=== PATIENT | male | born 1955 | race Two or more races ===

== ENCOUNTER 2017-11-10 18:44 | Inpatient (IN) | payer MEDICARE ==
[~2017-11-10] VITALS: Ht 172.7 cm; Wt 81.6 kg
[~2017-11-10 18:44] MED LIST: Depakote 125mg Sprinkles ORAL SCH
[2017-11-10] MEDS ORDERED: PANTOPRAZOLE SO40 MG ORAL (18:58)
[2017-11-10] MEDS ORDERED: LEVOTHYROXINE75 MCG ORAL (18:58)
[2017-11-10] MEDS ORDERED: DEPAKOTE250 MG PO (18:58)
[2017-11-10] MEDS ORDERED: RISPERDAL1 MG PO (18:58)
[2017-11-10] MEDS ORDERED: CATAPRES0.1 MG ORAL (18:58)
[2017-11-10] MEDS ORDERED: LOSARTAN POTASS25 MG ORAL (18:58)
[2017-11-10] MEDS ORDERED: LAMICTAL25 MG ORAL ×2 (18:58→19:51)
[2017-11-10] MEDS ORDERED: SEROQUEL200 MG ORAL (18:58)
[2017-11-10] MEDS ORDERED: BUPROPION HCL75 MG PO (18:58)
--- NOTE | 2017-11-10 19:03 | Emergency Room Report ---
History of Present Illness General Chief Complaint: Seizure Source: EMS Present Illness HPI Patient is currently staying at a senior care. Patient has a history of hypertension and psychosis generalized weakness anxiety disorder intellectual disability questionable dementia who recently developed seizures. Today apparently had a seizure and a fall followed by confusion. Patient currently is only alert oriented to self when he typically is alert and oriented 3. Patient is currently being cared for by Dr. Maharaj's group. Patient apparently had a seizure today and then fall no evidence of any trauma but appears confused. No further history is available as time patient denies any fever chest pain shortness breath symptoms noted to be severe.No other modifying factors. No other associated signs and symptoms. No other complaints were noted. Allergies: Coded Allergies: No Known Allergies (Unverified , 11/10/17) Patient History Past Medical History: HTN Past Surgical History: none Pertinent Family History: none Social History: Denies: smoking, alcohol use, drug use Social History Narrative stays at a senior care Reviewed Nursing Documentation: PMH: Agreed; PSxH: Agreed Nursing Documentation-PMH Past Medical History: No History, Except For Hx Hypertension: Yes Review of Systems All Other Systems: negative except mentioned in HPI Physical Exam Vital Signs Date Time Temp Pulse Resp B/P (MAP) Pulse Ox O2 Delivery O2 Flow Rate FiO2 11/10/17 18:34 98.0 82 18 136/90 98 Nasal Cannula 2.0 98.1 Sp02 EP Interpretation: reviewed, normal General Appearance: alert, moderate distress Head: atraumatic Eyes: bilateral eye normal inspection ENT: normal ENT inspection, hearing grossly normal, normal voice Neck: normal inspection, full range of motion, supple, no bony tend Respiratory: normal inspection, lungs clear, normal breath sounds, no respiratory distress, no retraction, no wheezing Cardiovascular #1: regular rate, rhythm, no edema Gastrointestinal: normal inspection, normal bowel sounds, non tender, soft, no guarding, no hernia Genitourinary: no CVA tenderness Musculoskeletal: normal inspection, back normal, normal range of motion Neurologic: normal inspection, alert, responsive - Appears confused. Alert and oriented to self, speech normal Psychiatric: depressed affect, anxious Skin: normal inspection, normal color, no rash Medical Decision Making Diagnostic Impression: Primary Impression: Epileptic seizure, generalized Additional Impressions: Altered mental status, unspecified Rhabdomyolysis ER Course Patient presents emergency department today complaining of a seizure. Patient appears be altered after seizure. Differential considerations include subtherapeutic medication level, electrolyte abnormality acute cranial injury just to name a few.Given the severity of the patient's presentation I felt this is a highly complex patient. This patient required extensive workup. Patient' s laboratory workup was not impressive except for Depakote level being low. Patient was given a Depacon load. In addition patient appears have elevated CK which be secondary seizures. Patient was given fluid bolus. Because patient's presentation persistent altered mental status patient require admission to the hospital. Case was discussed with Dr. Jett for admission. Labs Test 11/10/17 18:59 White Blood Count 8.6 K/UL (4.8-10.8) Red Blood Count 4.34 M/UL (4.70-6.10) Hemoglobin 13.1 G/DL (14.2-18.0) Hematocrit 38.1 % (42.0-52.0) Mean Corpuscular Volume 88 FL (80-99) Mean Corpuscular Hemoglobin 30.1 PG (27.0-31.0) Mean Corpuscular Hemoglobin Concent 34.3 G/DL (32.0-36.0) Red Cell Distribution Width 11.6 % (11.6-14.8) Platelet Count 248 K/UL (150-450) Mean Platelet Volume 5.5 FL (6.5-10.1) Neutrophils (%) (Auto) 69.1 % (45.0-75.0) Lymphocytes (%) (Auto) 21.6 % (20.0-45.0) Monocytes (%) (Auto) 7.0 % (1.0-10.0) Eosinophils (%) (Auto) 1.3 % (0.0-3.0) Basophils (%) (Auto) 1.0 % (0.0-2.0) Sodium Level 134 MMOL/L (136-145) Potassium Level 3.8 MMOL/L (3.5-5.1) Chloride Level 101 MMOL/L (98-107) Carbon Dioxide Level 28 MMOL/L (21-32) Anion Gap 6 mmol/L (5-15) Blood Urea Nitrogen 7 mg/dL (7-18) Creatinine 0.8 MG/DL (0.55-1.30) Estimat Glomerular Filtration Rate > 60 mL/min (>60) Glucose Level 100 MG/DL (74-106) Calcium Level 9.1 MG/DL (8.5-10.1) Total Bilirubin 0.3 MG/DL (0.2-1.0) Aspartate Amino Transf (AST/SGOT) 61 U/L (15-37) Alanine Aminotransferase (ALT/SGPT) 34 U/L (12-78) Alkaline Phosphatase 60 U/L (46-116) Total Creatine Kinase 1803 U/L (26-308) Troponin I 0.010 ng/mL (0.000-0.056) Total Protein 7.2 G/DL (6.4-8.2) Albumin 3.3 G/DL (3.4-5.0) Globulin 3.9 g/dL Albumin/Globulin Ratio 0.8 (1.0-2.7) Valproic Acid (Depakene) Level 19 MCG/ML (50-100) EKG Diagnostic Results Rate: normal Rhythm: NSR ST Segments: no acute changes Rhythm Strip Diag. Results EP Interpretation: yes Rate: 76 Rhythm: NSR, no PVC's, no ectopy Chest X-Ray Diagnostic Results Chest X-Ray Diagnostic Results : Chest X-Ray Ordered: Yes # of Views/Limited/Complete: 1 View Indication: Chest Pain EP Interpretation: Yes Interpretation: no consolidation, no effusion, no pneumothorax, no acute cardiopulmonary disease Impression: No acute disease Electronically Signed by: Electronically signed by Fredy Zhou MD Last Vital Signs Date Time Temp Pulse Resp B/P (MAP) Pulse Ox O2 Delivery O2 Flow Rate FiO2 11/10/17 18:34 98.0 82 18 136/90 98 Nasal Cannula 2.0 98.1 Status: improved Disposition: ADMITTED INPATIENT Condition: Serious Fredy Zhou MD Nov 10, 2017 19:03
[2017-11-10 19:18] LABS: EOSINOPHILS % (AUTO) 1.3 % (0.0-3.0); HEMATOCRIT 38.1 % (42.0-52.0); HEMOGLOBIN 13.1 G/DL (14.2-18.0); LYMPHOCYTES % (AUTO) 21.6 % (20.0-45.0); MEAN CORPUSCULAR VOLUME 88 FL (80-99); NEUTROPHILS % (AUTO) 69.1 % (45.0-75.0); PLATELET COUNT 248 K/UL (150-450); RED BLOOD COUNT 4.34 M/UL (4.70-6.10); RED CELL DISTRIBUTION WIDTH 11.6 % (11.6-14.8); WHITE BLOOD COUNT 8.6 K/UL (4.8-10.8)
[2017-11-10 19:24] VITALS: BP 143/86
[2017-11-10 19:32] LABS: ANION GAP 6 mmol/L (5-15); BLOOD UREA NITROGEN 7 mg/dL (7-18); CALCIUM 9.1 MG/DL (8.5-10.1); CARBON DIOXIDE 28 MMOL/L (21-32); CHLORIDE 101 MMOL/L (98-107); CREATININE 0.8 MG/DL (0.55-1.30); POTASSIUM 3.8 MMOL/L (3.5-5.1); SODIUM 134 MMOL/L (136-145)
[2017-11-10 19:45] LABS: ALANINE AMINOTRANSFERASE 34 U/L (12-78); ALBUMIN 3.3 G/DL (3.4-5.0); ALBUMIN/GLOBULIN RATIO 0.8 (1.0-2.7); ALKALINE PHOSPHATASE 60 U/L (46-116); ASPARTATE AMINO TRANSFERASE 61 U/L (15-37); BILIRUBIN,TOTAL 0.3 MG/DL (0.2-1.0); CREATINE KINASE 1803 U/L (26-308)
[2017-11-10] MEDS ORDERED: DIVALPROEX SOD125 M1 PO (19:51)
[2017-11-10] MEDS ORDERED: SYNTHROID25 MCG ORAL (19:57)
[2017-11-10] MEDS ORDERED: UNITHROID50 MCG ORAL (19:57)
[2017-11-10] MEDS ORDERED: Valproate Sodium INJ 750 MG in D5W 47.5 ML IVPB ONE (20:00)
[2017-11-10] MEDS ORDERED: Sodium Chloride 500ML 500 ML IV ONE (20:45)
[2017-11-10 21:30] VITALS: BP 136/90
[2017-11-10 22:29] LABS: APPEARANCE,URINE CLEAR; BILIRUBIN, URINE NEGATIVE (NEGATIVE); COLOR,URINE PALE YELLOW; GLUCOSE, URINE (UA) NEGATIVE (NEGATIVE); KETONES,URINE NEGATIVE (NEGATIVE); LEUKOCYTE ESTERASE ,URINE NEGATIVE (NEGATIVE); NITRITE,URINE NEGATIVE (NEGATIVE); PH,URINE 7 (4.5-8.0); PROTEIN,URINE NEGATIVE (NEGATIVE); UROBILINOGEN,URINE NORMAL MG/DL (0.0-1.0)
[2017-11-10] MEDS ORDERED: LORazepam Inj 2mg/ml 1ml IV PRN (23:15)
[2017-11-10] MEDS ORDERED: Depakote 125mg Sprinkles ORAL SCH (23:45)
[2017-11-10] MEDS ORDERED: Sodium Chloride 500ML 1,000 ML IV SCH (23:50)
[2017-11-11 07:29] LABS: BASOPHILS % (AUTO) 0.8 % (0.0-2.0); EOSINOPHILS % (AUTO) 2.4 % (0.0-3.0); HEMATOCRIT 35.4 % (42.0-52.0); HEMOGLOBIN 12.1 G/DL (14.2-18.0); LYMPHOCYTES % (AUTO) 27.4 % (20.0-45.0); MEAN CORPUSCULAR VOLUME 86 FL (80-99); MONOCYTES % (AUTO) 5.2 % (1.0-10.0); NEUTROPHILS % (AUTO) 64.3 % (45.0-75.0); PLATELET COUNT 219 K/UL (150-450); RED BLOOD COUNT 4.14 M/UL (4.70-6.10); RED CELL DISTRIBUTION WIDTH 11.4 % (11.6-14.8); WHITE BLOOD COUNT 6.8 K/UL (4.8-10.8)
[2017-11-11 07:51] LABS: ANION GAP 7 mmol/L (5-15); BLOOD UREA NITROGEN 6 mg/dL (7-18); CALCIUM 8.7 MG/DL (8.5-10.1); CARBON DIOXIDE 29 MMOL/L (21-32); CHLORIDE 102 MMOL/L (98-107); CREATINE KINASE 1195 U/L (26-308); CREATININE 0.7 MG/DL (0.55-1.30); POTASSIUM 3.4 MMOL/L (3.5-5.1); SODIUM 138 MMOL/L (136-145)
[2017-11-11 08:00] VITALS: BP 119/63
[2017-11-11] MEDS: Depakote 125mg Sprinkles ORAL SCH ×2 (08:25→21:59)
[2017-11-11] MEDS: QUEtiapine 200mg tab ORAL SCH (08:25)
--- NOTE | 2017-11-11 09:54 | Diagnostic Imaging Report ---
Indication: Altered mental status Technique: Contiguous 5 mm thick transaxial imaging of the head obtained in a Siemens Sensation [address] scanner. Soft tissue and bone windows generated. Automatic Exposure Control was utilized. Total Dose length Product (DLP): 1445.[address] Dose Index Volume (CTDIvol): 70.38 mGy Comparison: none Findings: There is moderate prominence of the ventricles, basal cisterns, and cerebral sulci consistent with atrophy. Moderate, nonspecific, white matter hypoattenuation is noted throughout the brain consistent with chronic small vessel disease. There is no midline shift, edema, acute hemorrhage, mass effect, or abnormal extra-axial fluid collections. Bones and extra osseous soft tissues are unremarkable. Impression: No acute intracranial bleed, mass effect or edema. Moderate atrophy of the brain. Evidence of chronic small vessel disease involving white matter tracts. [facility] has communicated the preliminary results to the Emergency Department. Their findings are largely concordant with this report. The CT scanner at [facility] is accredited by the [employer] and the scans are performed using dose optimization techniques as appropriate to a performed exam including Automatic Exposure control.
--- NOTE | 2017-11-11 10:57 | Diagnostic Imaging Report ---
Indication: Chest pain Comparison: None A single view chest radiograph was obtained. Findings: Mild pulmonary vascular prominence demonstrated with heart size also increased slightly. Aorta is mildly increased in size. No pleural effusion identified. IMPRESSION: Query mild CHF. Correlate clinically
--- NOTE | 2017-11-11 11:30 | History and Physical ---
History of Present Illness General Date patient seen: Nov 11, 2017 Time patient seen: 10:00 Reason for Hospitalization: Seizure Present Illness HPI 62 year old man with history of epilepsy, unspecified psychosis, dementia, HTN who presents from the detention with seizure and subsequent fall. He is a poor historian due cognitive impairment, information obtain from medical record and detention transfer papers. In ED he was noted to be confused with subtherapeutic Depakote level and elevated CK levels, treated with IV valproic acid and IV saline. Allergies: Coded Allergies: No Known Allergies (Unverified , 11/10/17) Medication History Scheduled Bupropion Hcl* (Bupropion Hcl*), 150 MG PO DAILY, (Reported) Clonidine Hcl* (Catapres*), 0.1 MG ORAL EVERY 6 HOURS, (Reported) Divalproex Sodium (Divalproex Sodium), 125 MG PO BID, (Reported) Lamotrigine* (Lamictal*), 50 MG ORAL BID, (Reported) Levothyroxine Sodium* (Unithroid*), 50 MCG ORAL DAILY, (Reported) Losartan Potassium* (Losartan Potassium*), 25 MG ORAL DAILY, (Reported) Pantoprazole* (Pantoprazole*), 40 MG ORAL DAILY, (Reported) Quetiapine Fumarate* (Seroquel*), 200 MG ORAL DAILY, (Reported) Risperidone* (Risperdal*), 1 MG PO DAILY, (Reported) Patient History Limited by: medical condition Healthcare decision maker Resuscitation status Advanced Directive on File Family History Family History: Unable to obtain Social History Social History: (1) Unable to obtain Review of Systems Cardiovascular: Denies: chest pain Gastrointestinal: Denies: abdominal pain ROS Narrative Very limited ROS due to dementia and encephalopathy Physical Exam General Appearance: alert, confused HEENT: atraumatic, anicteric Neck: supple, normal inspection Respiratory/Chest: lungs clear, normal breath sounds, no respiratory distress Cardiovascular/Chest: normal rate, regular rhythm Abdomen: non tender, soft Neurologic: alert Last 24 Hour Vital Signs Date Time Temp Pulse Resp B/P (MAP) Pulse Ox O2 Delivery O2 Flow Rate FiO2 11/11/17 08:00 97.5 75 18 119/63 (81) 98 97.5 11/11/17 08:00 81 11/11/17 05:21 67 11/11/17 01:17 Room Air 11/10/17 23:19 97.8 72 13 136/90 98 Room Air 11/10/17 21:30 97.8 72 18 136/90 98 Room Air 97.8 11/10/17 19:24 98.0 72 16 143/86 98 Room Air 98.0 11/10/17 19:24 72 16 Room Air 11/10/17 18:34 98.0 82 18 136/90 98 Nasal Cannula 2.0 98.1 Intake and Output 11/10/17 11/11/17 19:00 07:00 Intake Total 1105 ml Output Total 520 ml Balance 585 ml Intake IV Total 1105 ml Output Urine Total 520 ml Laboratory Tests Test 11/10/17 18:59 11/10/17 22:00 11/11/17 05:30 White Blood Count 8.6 K/UL (4.8-10.8) 6.8 K/UL (4.8-10.8) Red Blood Count 4.34 M/UL (4.70-6.10) L 4.14 M/UL (4.70-6.10) L Hemoglobin 13.1 G/DL (14.2-18.0) L 12.1 G/DL (14.2-18.0) L Hematocrit 38.1 % (42.0-52.0) L 35.4 % (42.0-52.0) L Mean Corpuscular Volume 88 FL (80-99) 86 FL (80-99) Mean Corpuscular Hemoglobin 30.1 PG (27.0-31.0) 29.3 PG (27.0-31.0) Mean Corpuscular Hemoglobin Concent 34.3 G/DL (32.0-36.0) 34.2 G/DL (32.0-36.0) Red Cell Distribution Width 11.6 % (11.6-14.8) 11.4 % (11.6-14.8) L Platelet Count 248 K/UL (150-450) 219 K/UL (150-450) Mean Platelet Volume 5.5 FL (6.5-10.1) L 4.9 FL (6.5-10.1) L Neutrophils (%) (Auto) 69.1 % (45.0-75.0) 64.3 % (45.0-75.0) Lymphocytes (%) (Auto) 21.6 % (20.0-45.0) 27.4 % (20.0-45.0) Monocytes (%) (Auto) 7.0 % (1.0-10.0) 5.2 % (1.0-10.0) Eosinophils (%) (Auto) 1.3 % (0.0-3.0) 2.4 % (0.0-3.0) Basophils (%) (Auto) 1.0 % (0.0-2.0) 0.8 % (0.0-2.0) Sodium Level 134 MMOL/L (136-145) L 138 MMOL/L (136-145) Potassium Level 3.8 MMOL/L (3.5-5.1) 3.4 MMOL/L (3.5-5.1) L Chloride Level 101 MMOL/L (98-107) 102 MMOL/L (98-107) Carbon Dioxide Level 28 MMOL/L (21-32) 29 MMOL/L (21-32) Anion Gap 6 mmol/L (5-15) 7 mmol/L (5-15) Blood Urea Nitrogen 7 mg/dL (7-18) 6 mg/dL (7-18) L Creatinine 0.8 MG/DL (0.55-1.30) 0.7 MG/DL (0.55-1.30) Estimat Glomerular Filtration Rate > 60 mL/min (>60) > 60 mL/min (>60) Glucose Level 100 MG/DL (74-106) 89 MG/DL (74-106) Calcium Level 9.1 MG/DL (8.5-10.1) 8.7 MG/DL (8.5-10.1) Total Bilirubin 0.3 MG/DL (0.2-1.0) Aspartate Amino Transf (AST/SGOT) 61 U/L (15-37) H Alanine Aminotransferase (ALT/SGPT) 34 U/L (12-78) Alkaline Phosphatase 60 U/L (46-116) Total Creatine Kinase 1803 U/L (26-308) H 1195 U/L (26-308) H Troponin I 0.010 ng/mL (0.000-0.056) Total Protein 7.2 G/DL (6.4-8.2) Albumin 3.3 G/DL (3.4-5.0) L Globulin 3.9 g/dL Albumin/Globulin Ratio 0.8 (1.0-2.7) L Valproic Acid (Depakene) Level 19 MCG/ML (50-100) L 51 MCG/ML (50-100) Urine Color Pale yellow Urine Appearance Clear Urine pH 7 (4.5-8.0) Urine Specific [place] 1.005 (1.005-1.035) Urine Protein Negative (NEGATIVE) Urine Glucose (UA) Negative (NEGATIVE) Urine Ketones Negative (NEGATIVE) Urine Blood Negative (NEGATIVE) Urine Nitrite Negative (NEGATIVE) Urine Bilirubin Negative (NEGATIVE) Urine Urobilinogen Normal MG/DL (0.0-1.0) Urine Leukocyte Esterase Negative (NEGATIVE) Height (Feet): 5 Height (Inches): 8.00 Weight (Pounds): 180 Medications Current Medications Medications (Trade) Dose Ordered Sig/Susanne Route PRN Reason Start Time Stop Time Status Last Admin Dose Admin Clonidine HCl (Catapres Tab) 0.1 mg EVERY 6 HOURS ORAL 11/11/17 12:00 12/11/17 11:59 UNV Divalproex Sodium (Depakote Sprinkles) 125 mg Q12H ORAL 11/11/17 09:00 12/11/17 08:59 11/11/17 08:25 Hydralazine HCl (Apresoline) 10 mg Q6HR PRN IV For High Blood Pressure 11/10/17 23:15 12/10/17 23:14 Lamotrigine (LaMICtal) 50 mg BID ORAL 11/11/17 11:30 12/11/17 11:29 UNV Levothyroxine Sodium (Synthroid) 50 mcg ACBREAKFAST ORAL 11/11/17 06:30 12/11/17 06:29 11/11/17 05:48 Lorazepam (Ativan 2mg/ml 1ml) 2 mg Q4H PRN IV For Seizures 11/10/17 23:15 11/17/17 23:14 Losartan Potassium (Cozaar) 25 mg DAILY ORAL 11/12/17 09:00 12/12/17 08:59 UNV Pantoprazole (Protonix) 40 mg DAILY ORAL 11/12/17 09:00 12/12/17 08:59 UNV Quetiapine Fumarate (SEROquel) 200 mg DAILY ORAL 11/11/17 09:00 12/11/17 08:59 11/11/17 08:25 Risperidone (RisperDAL) 1 mg TWICE A DAY ORAL 11/10/17 23:30 12/10/17 23:29 11/11/17 08:25 Sodium Chloride 1,000 ml @ 100 mls/hr Q10H IV 11/11/17 00:15 12/11/17 00:14 11/11/17 10:35 Assessment/Plan Assessment/Plan 1)Breakthrough seizure superimposed on documented epilepsy, noted to have subtherapeutic Depakote level, corrected with IV bolus. Will continue with Depaote and Lamictal. Neurology to be consulted. Seizure precautions. Fall precautions. 2)Rhabdomyolysis likely from seizure and fall, CK level down today, will continue with IV fluids, check CK again in AM. 3)Acute encephalopathy superimposed on dementia, likely post-ictal state, continue supportive measures and frequent orienting. Fall, aspiration precautions. 4)Essential HTN, continue losartan and clonidine 5)Unspecified psychosis, continue current psychotropics, consult Dr. Carlson Full Code VTE PPx heparin sc Patient will require a hospitalization crossing 2 midnights in order to get close neurological monitoring, IV fluids and monitoring of renal function CK levels. He is at risk for recurrent seizures and traumatic injury. Ray Newsome MD Nov 11, 2017 11:30
[2017-11-11 12:00] VITALS: BP 140/81
[2017-11-11] MEDS ORDERED: Losartan 25mg tab ORAL SCH (12:00)
[2017-11-11 16:00] VITALS: BP 131/75
[2017-11-11 20:31] VITALS: BP 128/67
[2017-11-12] VITALS: BP 135/79
[2017-11-12 04:00] VITALS: BP 116/71
[2017-11-12 08:00] VITALS: BP 137/67
[2017-11-12 08:01] LABS: BASOPHILS % (AUTO) 0.9 % (0.0-2.0); EOSINOPHILS % (AUTO) 2.9 % (0.0-3.0); HEMOGLOBIN 12.9 G/DL (14.2-18.0); LYMPHOCYTES % (AUTO) 34.8 % (20.0-45.0); MEAN CORPUSCULAR VOLUME 87 FL (80-99); MONOCYTES % (AUTO) 4.8 % (1.0-10.0); NEUTROPHILS % (AUTO) 56.6 % (45.0-75.0); PLATELET COUNT 241 K/UL (150-450); RED BLOOD COUNT 4.39 M/UL (4.70-6.10); RED CELL DISTRIBUTION WIDTH 11.6 % (11.6-14.8); WHITE BLOOD COUNT 5.6 K/UL (4.8-10.8)
[2017-11-12 08:07] LABS: ANION GAP 3 mmol/L (5-15); BLOOD UREA NITROGEN 10 mg/dL (7-18); CALCIUM 8.9 MG/DL (8.5-10.1); CARBON DIOXIDE 31 MMOL/L (21-32); CHLORIDE 104 MMOL/L (98-107); CREATININE 0.8 MG/DL (0.55-1.30); POTASSIUM 3.7 MMOL/L (3.5-5.1); SODIUM 138 MMOL/L (136-145)
[2017-11-12 08:15] LABS: CREATINE KINASE 504 U/L (26-308)
[2017-11-12] MEDS: QUEtiapine 200mg tab ORAL SCH (08:19)
[2017-11-12] MEDS: Losartan 25mg tab ORAL SCH (08:19)
[2017-11-12] MEDS: Depakote 125mg Sprinkles ORAL SCH ×2 (08:22→21:20)
[2017-11-12 12:00] VITALS: BP 116/76
--- NOTE | 2017-11-12 14:28 | Consultation ---
History of Present Illness General Date patient seen: Nov 11, 2017 Chief Complaint: Seizure Present Illness HPI 62 year old man with history of epilepsy, psychotic d/o, dementia, HTN who [facility] with [facility]/the pt has been more confused and not able to provide a meaningful hx. the pt is disorganized Allergies: Coded Allergies: No Known Allergies (Unverified , 11/10/17) Medication History Scheduled Bupropion Hcl* (Bupropion Hcl*), 150 MG PO DAILY, (Reported) Clonidine Hcl* (Catapres*), 0.1 MG ORAL EVERY 6 HOURS, (Reported) Divalproex Sodium (Divalproex Sodium), 125 MG PO BID, (Reported) Lamotrigine* (Lamictal*), 50 MG ORAL BID, (Reported) Levothyroxine Sodium* (Unithroid*), 50 MCG ORAL DAILY, (Reported) Losartan Potassium* (Losartan Potassium*), 25 MG ORAL DAILY, (Reported) Pantoprazole* (Pantoprazole*), 40 MG ORAL DAILY, (Reported) Quetiapine Fumarate* (Seroquel*), 200 MG ORAL DAILY, (Reported) Risperidone* (Risperdal*), 1 MG PO DAILY, (Reported) Patient History Limited by: medical condition History Provided By: Patient, Medical Record Healthcare decision maker Resuscitation status Advanced Directive on File Past Medical/Surgical History Past Medical/Surgical History: (1) Rhabdomyolysis (2) Epileptic seizure, generalized (3) Altered mental status, unspecified (4) Unable to obtain Review of Systems Psychiatric: Reports: prior hx, anxiety, hallucinations Physical Exam General Appearance: no apparent distress, alert, confused, agitated Last 24 Hour Vital Signs Date Time Temp Pulse Resp B/P (MAP) Pulse Ox O2 Delivery O2 Flow Rate FiO2 11/12/17 12:00 97.5 81 18 116/76 (89) 94 97.5 11/12/17 12:00 79 11/12/17 09:00 Room Air 11/12/17 08:19 126/72 11/12/17 08:00 78 11/12/17 08:00 98.1 81 18 137/67 (90) 94 98.1 11/12/17 04:00 97.2 69 18 116/71 (86) 94 97.2 11/12/17 04:00 69 11/12/17 00:00 98.1 85 20 135/79 (97) 94 98.1 11/12/17 00:00 73 11/11/17 21:00 Room Air 11/11/17 20:31 97.7 62 20 128/67 (87) 96 97.7 11/11/17 20:00 86 11/11/17 16:00 70 11/11/17 16:00 97.9 73 18 131/75 (93) 98 97.9 Intake and Output 11/11/17 11/12/17 19:00 07:00 Intake Total 860 ml Output Total 300 ml Balance 560 ml Intake Oral 860 ml Output Urine Total 300 ml # Voids 3 Laboratory Tests Test 11/12/17 06:10 White Blood Count 5.6 K/UL (4.8-10.8) Red Blood Count 4.39 M/UL (4.70-6.10) L Hemoglobin 12.9 G/DL (14.2-18.0) L Hematocrit 38.0 % (42.0-52.0) L Mean Corpuscular Volume 87 FL (80-99) Mean Corpuscular Hemoglobin 29.4 PG (27.0-31.0) Mean Corpuscular Hemoglobin Concent 33.9 G/DL (32.0-36.0) Red Cell Distribution Width 11.6 % (11.6-14.8) Platelet Count 241 K/UL (150-450) Mean Platelet Volume 5.0 FL (6.5-10.1) L Neutrophils (%) (Auto) 56.6 % (45.0-75.0) Lymphocytes (%) (Auto) 34.8 % (20.0-45.0) Monocytes (%) (Auto) 4.8 % (1.0-10.0) Eosinophils (%) (Auto) 2.9 % (0.0-3.0) Basophils (%) (Auto) 0.9 % (0.0-2.0) Sodium Level 138 MMOL/L (136-145) Potassium Level 3.7 MMOL/L (3.5-5.1) Chloride Level 104 MMOL/L (98-107) Carbon Dioxide Level 31 MMOL/L (21-32) Anion Gap 3 mmol/L (5-15) L Blood Urea Nitrogen 10 mg/dL (7-18) Creatinine 0.8 MG/DL (0.55-1.30) Estimat Glomerular Filtration Rate > 60 mL/min (>60) Glucose Level 86 MG/DL (74-106) Calcium Level 8.9 MG/DL (8.5-10.1) Magnesium Level 1.7 MG/DL (1.8-2.4) L Total Creatine Kinase 504 U/L (26-308) H Height (Feet): 5 Height (Inches): 8.00 Weight (Pounds): 180 Medications Current Medications Medications (Trade) Dose Ordered Sig/Susanne Route PRN Reason Start Time Stop Time Status Last Admin Dose Admin Divalproex Sodium (Depakote Sprinkles) 125 mg Q12H ORAL 11/11/17 09:00 12/11/17 08:59 11/12/17 08:22 Hydralazine HCl (Apresoline) 10 mg Q6HR PRN IV For High Blood Pressure 11/10/17 23:15 12/10/17 23:14 Lamotrigine (LaMICtal) 50 mg BID ORAL 11/11/17 18:00 12/11/17 17:59 11/12/17 08:18 Levothyroxine Sodium (Synthroid) 50 mcg ACBREAKFAST ORAL 11/11/17 06:30 12/11/17 06:29 11/12/17 06:20 Lorazepam (Ativan 2mg/ml 1ml) 2 mg Q4H PRN IV For Seizures 11/10/17 23:15 11/17/17 23:14 Losartan Potassium (Cozaar) 25 mg DAILY ORAL 11/12/17 09:00 12/12/17 08:59 11/12/17 08:19 Pantoprazole (Protonix) 40 mg DAILY ORAL 11/12/17 09:00 12/12/17 08:59 11/12/17 08:18 Quetiapine Fumarate (SEROquel) 200 mg DAILY ORAL 11/11/17 09:00 12/11/17 08:59 11/12/17 08:19 Risperidone (RisperDAL) 1 mg TWICE A DAY ORAL 11/10/17 23:30 12/10/17 23:29 11/12/17 08:19 Sodium Chloride 1,000 ml @ 100 mls/hr Q10H IV 11/11/17 00:15 12/11/17 00:14 11/12/17 06:21 Assessment/Plan Assessment/Plan encephalopathy due to metabolic d.o psychotic d.o dementia cont seroquel cont risperdal provided ro/Abby Quiñones MD Nov 12, 2017 14:28
--- NOTE | 2017-11-12 15:31 | Cardiology Report ---
APPROVED REPORT EKG Measurement Heart [id number] Normal sinus rhythm Normal ECG
[2017-11-12 16:00] VITALS: BP 125/79
--- NOTE | 2017-11-12 18:23 | General Progress Note ---
Assessment/Plan Assessment/Plan Breakthrough seizure superimposed on documented epilepsy, noted to have subtherapeutic Depakote level, continue with Depaote and Lamictal. Seizure precautions. Fall precautions. May need inpatient MRI Rhabdomyolysis likely from seizure and fall, resolving with IV fluids. Acute encephalopathy superimposed on dementia, likely post-ictal state, better today, continue supportive measures. Essential HTN, continue losartan and clonidine Unspecified psychosis, continue current psychotropics, spoke with Dr. Carlson VTE PPx Subjective Date patient seen: Nov 12, 2017 Time patient seen: 17:00 ROS Limited/Unobtainable: Yes Cardiovascular: Denies: chest pain Respiratory: Denies: cough Gastrointestinal/Abdominal: Denies: abdominal pain Allergies: Coded Allergies: No Known Allergies (Unverified , 11/10/17) Subjective Medicine followup for seizure, subtherapeutic Depakote level, acute encephalopathy. No new seizure activity, very limited information from patient due to cognitive impairment. Objective Last 24 Hour Vital Signs Date Time Temp Pulse Resp B/P (MAP) Pulse Ox O2 Delivery O2 Flow Rate FiO2 11/12/17 16:00 87 11/12/17 16:00 98.1 84 18 125/79 (94) 92 98.1 11/12/17 12:00 97.5 81 18 116/76 (89) 94 97.5 11/12/17 12:00 79 11/12/17 09:00 Room Air 11/12/17 08:19 126/72 11/12/17 08:00 78 11/12/17 08:00 98.1 81 18 137/67 (90) 94 98.1 11/12/17 04:00 97.2 69 18 116/71 (86) 94 97.2 11/12/17 04:00 69 11/12/17 00:00 98.1 85 20 135/79 (97) 94 98.1 11/12/17 00:00 73 11/11/17 21:00 Room Air 11/11/17 20:31 97.7 62 20 128/67 (87) 96 97.7 11/11/17 20:00 86 Intake and Output 11/11/17 11/12/17 19:00 07:00 Intake Total 860 ml Output Total 300 ml Balance 560 ml Intake Oral 860 ml Output Urine Total 300 ml # Voids 3 Laboratory Tests 11/12/17 06:10: White Blood Count 5.6, Red Blood Count 4.39L, Hemoglobin 12.9L, Hematocrit 38.0L , Mean Corpuscular Volume 87, Mean Corpuscular Hemoglobin 29.4, Mean Corpuscular Hemoglobin Concent 33.9, Red Cell Distribution Width 11.6, Platelet Count 241, Mean Platelet Volume 5.0L, Neutrophils (%) (Auto) 56.6, Lymphocytes ( %) (Auto) 34.8, Monocytes (%) (Auto) 4.8, Eosinophils (%) (Auto) 2.9, Basophils (%) (Auto) 0.9, Sodium Level 138, Potassium Level 3.7, Chloride Level 104, Carbon Dioxide Level 31, Anion Gap 3L, Blood Urea Nitrogen 10, Creatinine 0.8, Estimat Glomerular Filtration Rate > 60, Glucose Level 86, Calcium Level 8.9, Magnesium Level 1.7L, Total Creatine Kinase 504H Height (Feet): 5 Height (Inches): 8.00 Weight (Pounds): 180 General Appearance: no apparent distress, alert Neck: supple Cardiovascular: normal rate, regular rhythm Respiratory/Chest: lungs clear, normal breath sounds, no respiratory distress Abdomen: non tender, soft Extremities: non-tender, normal inspection Ray Newsome MD Nov 12, 2017 18:23
[2017-11-12 20:00] VITALS: BP 135/85
--- NOTE | 2017-11-12 23:16 | General Progress Note ---
Assessment/Plan Status: stable Assessment/Plan encephalopathy due to metabolic d.o psychotic d.o dementia dc seroquel cont risperdal change to 2mg qhs dc when medically cleared provided ro/st Subjective Date patient seen: Nov 12, 2017 Neurologic/Psychiatric: Reports: anxiety, depressed, emotional problems Allergies: Coded Allergies: No Known Allergies (Unverified , 11/10/17) Subjective spoke with the pts facility and the pt is at his baseline. Objective Last 24 Hour Vital Signs Date Time Temp Pulse Resp B/P (MAP) Pulse Ox O2 Delivery O2 Flow Rate FiO2 11/12/17 21:00 Room Air 11/12/17 20:00 98.2 69 18 135/85 (102) 94 98.2 11/12/17 20:00 91 11/12/17 16:00 87 11/12/17 16:00 98.1 84 18 125/79 (94) 92 98.1 11/12/17 12:00 97.5 81 18 116/76 (89) 94 97.5 11/12/17 12:00 79 11/12/17 09:00 Room Air 11/12/17 08:19 126/72 11/12/17 08:00 78 11/12/17 08:00 98.1 81 18 137/67 (90) 94 98.1 11/12/17 04:00 97.2 69 18 116/71 (86) 94 97.2 11/12/17 04:00 69 11/12/17 00:00 98.1 85 20 135/79 (97) 94 98.1 11/12/17 00:00 73 Intake and Output 11/11/17 11/12/17 19:00 07:00 Intake Total 860 ml Output Total 300 ml Balance 560 ml Intake Oral 860 ml Output Urine Total 300 ml # Voids 3 Laboratory Tests 11/12/17 06:10: White Blood Count 5.6, Red Blood Count 4.39L, Hemoglobin 12.9L, Hematocrit 38.0L , Mean Corpuscular Volume 87, Mean Corpuscular Hemoglobin 29.4, Mean Corpuscular Hemoglobin Concent 33.9, Red Cell Distribution Width 11.6, Platelet Count 241, Mean Platelet Volume 5.0L, Neutrophils (%) (Auto) 56.6, Lymphocytes ( %) (Auto) 34.8, Monocytes (%) (Auto) 4.8, Eosinophils (%) (Auto) 2.9, Basophils (%) (Auto) 0.9, Sodium Level 138, Potassium Level 3.7, Chloride Level 104, Carbon Dioxide Level 31, Anion Gap 3L, Blood Urea Nitrogen 10, Creatinine 0.8, Estimat Glomerular Filtration Rate > 60, Glucose Level 86, Calcium Level 8.9, Magnesium Level 1.7L, Total Creatine Kinase 504H Height (Feet): 5 Height (Inches): 8.00 Weight (Pounds): 180 General Appearance: alert, confused, agitated Abby Carlson MD Nov 12, 2017 23:16
[2017-11-13] VITALS: BP 135/84
[2017-11-13 04:00] VITALS: BP 104/55
[2017-11-13 08:28] VITALS: BP 128/70
[2017-11-13] MEDS: Losartan 25mg tab ORAL SCH (08:30)
[2017-11-13] MEDS: Depakote 125mg Sprinkles ORAL SCH (08:30)
[2017-11-13 11:47] VITALS: BP 130/75
[2017-11-13] MEDS ORDERED: DEPAKOTE125 MG PO (13:37)
[2017-11-13] MEDS ORDERED: RISPERDAL1 MG ORAL (13:37)
--- NOTE | 2017-11-13 13:43 | Discharge Summary ---
Discharge Summary Hospital Course Date of Admission Nov 10, 2017 at 19:46 Date of Discharge 11/13/17 Admitting Diagnosis juan Bright is a 62 year old male who was admitted on Nov 10, 2017 at 19:46 for Seizure, Altered Mental Status Consultations Psychiatry Hospital Course Patient presented from [facility] with breakthrough seizure and fall - admitted to the medical service with seizure and acute encephalopathy, given IV Depakote as level was subtherapeutic without any further seizure. Mentation gradually improved and he is back to baseline. Psychiatry meds adjusted by Psychiatry. He was also noted to have acute rhabdomyolysis from seizure and fall , resolved with IV hydration. Patient will be discharged back to the assisted in stable condition, Depakote was increased to 250mg bid. Patient should see a neurologist as an outpatient next week and have close monitoring of Depakote levels. Discharge Medications New Medications: Divalproex Sodium (Depakote) 125 Mg Tablet.dr 250 MG PO BID for 30 Days, #120 TAB Risperidone* (Risperdal*) 1 Mg Tablet 2 MG ORAL BEDTIME for 30 Days, #60 TAB Continued Medications: Bupropion Hcl* (Bupropion Hcl*) 75 Mg Tablet 150 MG PO DAILY, TAB (This prescription has been renewed) Clonidine Hcl* (Catapres*) 0.1 Mg Tablet 0.1 MG ORAL EVERY 6 HOURS, TAB (This prescription has been renewed) Lamotrigine* (Lamictal*) 25 Mg Tablet 50 MG ORAL BID, TAB (This prescription has been renewed) Levothyroxine Sodium* (Unithroid*) 50 Mcg Tablet 50 MCG ORAL DAILY, TAB (This prescription has been renewed) Take in the morning on an empty stomach, at least 30 minutes before food. Losartan Potassium* (Losartan Potassium*) 25 Mg Tablet 25 MG ORAL DAILY, TAB (This prescription has been renewed) Pantoprazole* (Pantoprazole*) 40 Mg Tablet.dr 40 MG ORAL DAILY, TAB (This prescription has been renewed) Quetiapine Fumarate* (Seroquel*) 200 Mg Tablet 200 MG ORAL DAILY, TAB (This prescription has been renewed) Discontinued Medications: Divalproex Sodium (Divalproex Sodium) 125 Mg Tablet.dr 125 MG PO BID, TAB Risperidone* (Risperdal*) 1 Mg Tablet 1 MG PO DAILY, TAB Discharge Discharge Disposition Patient was discharged to Discharge Diagnoses: (1) Altered mental status, unspecified (2) Epileptic seizure, generalized (3) Rhabdomyolysis Ray Newsome MD Nov 13, 2017 13:42
[2017-11-13 16:15] VITALS: BP 123/81
--- NOTE | 2017-11-14 00:09 | General Progress Note ---
Assessment/Plan Assessment/Plan encephalopathy due to metabolic d.o psychotic d.o dementia dc seroquel cont risperdal change to 2mg qhs dc when medically cleared provided ro/st Subjective Date patient seen: Nov 13, 2017 Neurologic/Psychiatric: Reports: anxiety, depressed Allergies: Coded Allergies: No Known Allergies (Unverified , 11/10/17) Objective Last 24 Hour Vital Signs Date Time Temp Pulse Resp B/P (MAP) Pulse Ox O2 Delivery O2 Flow Rate FiO2 11/13/17 16:15 98.2 81 20 123/81 (95) 96 98.2 11/13/17 12:00 75 11/13/17 11:47 98.2 73 20 130/75 (93) 96 98.2 11/13/17 09:00 Room Air 11/13/17 08:30 128/70 11/13/17 08:28 97.3 79 18 128/70 (89) 96 97.3 11/13/17 08:00 79 11/13/17 04:00 64 11/13/17 04:00 97.2 67 20 104/55 (71) 94 97.2 Intake and Output 11/13/17 11/14/17 19:00 07:00 Intake Total 240 ml Output Total 300 ml Balance -60 ml Intake Oral 240 ml Output Urine Total 300 ml Height (Feet): 5 Height (Inches): 8.00 Weight (Pounds): 180 General Appearance: no apparent distress, alert, confused Abby Carlson MD Nov 14, 2017 00:09
== END 2017-11-13 17:35 | disposition home or self-care (01) | DRG 100 ==
LOC: EDBD 18:44 → EMR 19:36 → 2E 19:46 → EDBEDREQ 22:05
DX: G40.409 Other generalized epilepsy and epileptic syndromes, not intractable, without status epilepticus (principal); G93.41 Metabolic encephalopathy; M62.82 Rhabdomyolysis; F03.90 Unspecified dementia, unspecified severity, without behavioral disturbance, psychotic disturbance, mood disturbance, and anxiety; I10 Essential (primary) hypertension; Z91.81 History of falling; F29 Unspecified psychosis not due to a substance or known physiological condition
CPT/HCPCS: 36415; 70450; 71045; 80048; 80053; 80164; 81003; 82550; 83735; 84484; 85025; 87081; 93005